=== PATIENT | male | born 1995 | race Caucasian/White ===

== ENCOUNTER 2022-12-28 08:37 | Outpatient (CLI) | payer OTHER ==
[2022-12-28 09:31] VITALS: BP 128/68
--- NOTE | 2022-12-28 09:31 | SLEEP CARE CONSULTATION ---
Information from patient questionnaire entered by Katya Geller. I have reviewed and concur with the information entered by Katya Geller. This document represents the service I personally performed and the decisions made by me, Solange Lin ARNP. History of Present Illness Service Date and Time: 12/28/2022 0837 Reason for Visit: New patient Chief Complaint: reports: Unrefreshed sleep, Snoring, Excessive daytime sleepiness, Observed pauses in breathing, Fatigue, Frequent awakenings at night Date of Onset: 1-1.5YRS Usual bedtime: 10PM Time it takes to fall asleep: 5-10MIN Snores at night: Yes Observed to quit breathing while asleep: Yes Sleeps alone due to snoring: Yes Number of times waking at night: 3-4 Reasons for waking at night: reports: Gasping for air, Bathroom Toss, Turn, or Twitch while sleeping: Yes Recalls having dreams: Yes Usually gets out of bed at: 5-6AM Feels refreshed in the morning: No Morning headache: Yes (2 days a week; RESOLVES AFTER EXCEDRIN AND TIME 1-2 HRS ) Sleepy or fatigued during the day: Yes Ever fallen asleep while driving: No Takes day naps: Yes (rare that he gets naps) Dreams during day naps: No Additional HPI information: I had the pleasure of seeing SOHAN DORSEY today regarding the possibility of him having a sleep disorder. His current complaints are unrefreshed sleep, snoring, excessive daytime sleepiness, observed pauses in breathing, fatigue and frequent night awakenings. 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 He would also sound like he was choking. He states he has woke himself feeling like he was "holding his breath". His girlfriend also has complained of his snoring. He states he wakes up with headaches at least 2 times a week. He feels he gets a "good amount of sleep". - Parasomnia Symptoms Ever been unable to move upon waking from sleep: No Walks in sleep: No Talks in sleep: No Ever acted out dreams in sleep: No Ever felt weak in the knees when startled or emotional: No Bothered by creepy, crawly, restless sensations in legs: No Problems with memory or concentration: No Subjective Initial [place] Sleepiness Scale score: 12 (12/21/22) Past Medical History Past Medical History: reports: Other (no significant history) Social History The patient's occupation is a AM. Patient is Single and lives in . Have you smoked in the past 12 months: No Alcohol use: Yes Alcohol amount and frequency: 3-4 ONCE OR TWICE A MONTH Caffeine use: Yes Caffeine amount and frequency: 1 ALMOST DAILY Family History Family history of sleep disordered breathing: No Allergies and Home Medications Known drug allergies: No Drug allergies reviewed: Yes (NKDA) Home medication list reviewed: Yes (OTC [place] daily, prn allergies) Review of Systems Weight gain over past 5 years: 5 in last 10 months Weight loss over past 5 years: 22 Cardiovascular: denies: high blood pressure Gastrointestinal: denies: heartburn Neurological: reports: headaches. denies: head trauma Psychiatric: denies: anxiety, depression Ear/Nose/Throat: reports: nasal congestion, sinus problems, wisdom teeth removed. denies: tonsillectomy Endocrine: denies: thyroid disease Musculoskeletal: reports: back pain Immunologic: reports: allergies to food or environment (seasonal) Physical Exam Vital signs obtained and entered by: KATYA Cortés MA Blood Pressure: 128/68 (LEFT ARM) Cuff size: regular Heart Rate: 68 O2 Saturation: 97 Height: 5 ft 9 in Weight: 154 lb 6.4 oz Body Mass Index: 22.8 BMI Classification: Normal Neck circumference: 15 Mouth and throat: narrow oropharynx Soft palate: normal Hard palate: normal Uvula: normal Uvula visualization: 50% Mallampati Class II Tongue: enlarged in size with teeth karimi on lateral edges Tonsils: 3+/kissing Neck: normal w/o lymphadenopathy or thyromegaly Heart: regular rate and rhythm Lungs: clear bilaterally Impression and Plan 1. Suspected Obstructive Sleep Apnea-Hypopnea Syndrome, as suggested by a history of loud and irregular snoring, observed cessation of breath while asleep , gasping or choking in sleep, morning headache, frequent awakening during the night, unrefreshed sleep, and excessive daytime sleepiness. Narrow oropharynx and obesity are common predisposing factors for obstructive sleep apnea-hypopnea syndrome. I recommend proceeding to polysomnography to confirm the diagnosis and to assess severity. If the patient has significant sleep disordered breathing, a manual CPAP titration study will also be performed to find the optimal treatment pressure. I informed the patient of what the sleep studies involve and after some discussion, obtained agreement to proceed. The pathophysiology of obstructive sleep apnea-hypopnea syndrome was discussed with the patient and health risks of cardiovascular and cerebrovascular disease if not treated. Risks of drowsy driving discussed in detail and patient advised to avoid long distance driving and to felt puller at the first sign of drowsiness. Patient agreed to plan. * Schedule polysomnography * Avoid long distance driving or driving when feeling sleepy. * Avoid alcohol, sedative and muscle relaxant around bedtime. * Review instructions provided by trained office staff on how to prepare for the sleep study. * Return for follow-up after sleep study completed. Visit Type: In Office Time Spent with Patient (minutes): 21 Provider Statement: I spent 100% of the Face to Face Visit with the patient with greater than 50% spent counseling the patient and coordination of care.
== END 2022-12-28 08:38 | disposition home or self-care (01) ==
LOC: SC 08:37
PROVIDERS: ATTEND Nurse Practitioner Family
DX: R06.83 Snoring (principal); R06.81 Apnea, not elsewhere classified; G47.8 Other sleep disorders; R51.9 Headache, unspecified; G47.10 Hypersomnia, unspecified
CPT/HCPCS: 99202; 99212

== ENCOUNTER 2023-02-08 08:31 | Outpatient (CLI) | payer OTHER | END 2023-02-08 08:32 | disposition home or self-care (01) | LOC: SC 08:31 | PROVIDERS: ATTEND Nurse Practitioner Family | DX: Z53.9 Procedure and treatment not carried out, unspecified reason (principal) | CPT/HCPCS: 95806 ==

== ENCOUNTER 2023-03-10 20:54 | Outpatient (CLI) | payer OTHER | END 2023-03-10 20:55 | disposition home or self-care (01) | LOC: SC 20:54 | PROVIDERS: ATTEND Nurse Practitioner Family | DX: G47.33 Obstructive sleep apnea (adult) (pediatric) (principal); G47.61 Periodic limb movement disorder | CPT/HCPCS: 95810 ==

== ENCOUNTER 2023-04-10 11:51 | Outpatient (CLI) | payer OTHER ==
--- NOTE | 2023-04-10 12:14 | SLEEP CARE CONSULTATION ---
Information from patient questionnaire entered by Richardson Geller. I have reviewed and concur with the information entered by Richardson Geller. This document represents the service I personally performed and the decisions made by me, Tim Hudson MD, [facility]. History of Present Illness Service Date and Time: 04/10/2023 1151 Initial [place] Sleepiness Scale score: 12 (12/21/22) Current [place] Sleepiness Scale score: 15 (04/10/23) Additional HPI information: Mr. Kaiser returned for follow up of the sleep study he had on 03/10/23. The polysomnography showed that the patient had slightly reduced sleep efficiency due to frequent awakenings in the first half of the night. The sleep architecture was abnormal for sleep fragmentation and lack of slow wave sleep (N3). Respiratory monitoring showed severe obstructive sleep apnea-hypopnea (AHI = 46.4) associated with frequent arousals, oxyhemoglobin desaturation and moderate hypoxia (phill oxygen saturation of 70%). Baseline oxygen saturation was normal. The respiratory events occurred independently of sleep stage and body position (supine AHI = 50.8; non-supine = 41.41). Snore was very loud in intensity. There was moderate periodic leg movement of sleep contributing to the sleep fragmentation. Cardiac rhythm was normal sinus rhythm without significant arrhythmia. No abnormal behavior (parasomnia) observed during the night. The patient was informed of these findings. I explained to him the pathophysiology behind obstructive sleep apnea. We then spent quite a bit of time discussing different treatment options. For mild obstructive sleep apnea, surgery and oral appliance are alternatives to nasal CPAP therapy but in moderate or severe cases, nasal CPAP is the most effective and reliable treatment. Weight loss in an obese individual is strongly recommended. After some discussion, he opted to go with the nasal CPAP therapy. I explained to him how CPAP machine works and what to expect when using the machine. He is encouraged to use CPAP every night especially in the first 2 to 3 nights in order to get used to it. He should call his CPAP supplier or me to discuss any mechanical problem that may occur. If he snores or feels like he is not getting enough air from the machine, he should notify me and I will increase the pressure. Sleep Study - Results Type of Sleep Study: Polysomnography (COMPLETED 03/10/23) Allergies and Home Medications Drug allergies reviewed: Yes Home medication list reviewed: Yes Allergy and home medication list: Allergies No Known Drug Allergies Allergy (Verified 04/07/23 10:20) Review of Systems Review of systems same as previous: Yes Physical Exam Vital signs obtained and entered by: RICHARDSON Cortés MA Height: 5 ft 9 in (PER PT) Weight: 155 lb (PER PT) Body Mass Index: 22.8 BMI Classification: Normal Impression and Plan IMPRESSION: 1. Obstructive Sleep Apnea-Hypopnea Syndrome, severe, associated with moderate hypoxemia and sleep fragmentation. Obviously, this is the cause of the patients symptoms of unrefreshed sleep, and excessive daytime sleepiness. As mentioned above, the patient will be started on an autoCPAP set between 5 and 15 cmH2O. Depending on his response and compliance he may be brought back for an overnight CPAP titration study. PLAN: 1. Prescription made for an autoCPAP, heated humidifier, and related supplies. 2. Avoid alcohol consumption near bedtime. 3. The patient is again cautioned about driving until his sleepiness completely resolves on the CPAP therapy. 4. Return for follow up after one month of using the CPAP. Prescriptions: Auto CPAP Follow up with Sleep Care in: 1-2 months Visit Type: Telehealth Video Video Type: [employer] Patient Location: Home Location of Provider: Office Patient agrees and consents to this telehealth visit type: Yes Patient agrees to have their insurance billed: Yes Time Spent with Patient (minutes): 15 Provider Statement: I spent 100% of the Telehealth Video Call with the patient with greater than 50% spent counseling the patient and coordination of care.
== END 2023-04-10 11:52 | disposition home or self-care (01) ==
LOC: SC 11:51
PROVIDERS: ATTEND Internal Medicine Pulmonary Disease
DX: G47.33 Obstructive sleep apnea (adult) (pediatric) (principal)
CPT/HCPCS: 99212